=== PATIENT | male | born 1970 | race Caucasian/White ===

== ENCOUNTER 2017-05-27 14:46 | Emergency (ER) | payer SELFPAY ==
[~2017-05-27] VITALS: Ht 177.8 cm; Wt 98.0 kg
--- NOTE | 2017-05-27 15:39 | NUR ---
Pt states he had a tendon displaced, hx recent surgery for reattachment. Pt c/o 04/06 pain left upper arm. PMS intact. Pt denies CP, SOB, dizziness, n/v, no other complaints, minor distress noted.
--- NOTE | 2017-05-27 15:52 | NUR ---
placed pt's left arm in sling. PMS intact.
--- NOTE | 2017-05-27 16:38 | NUR ---
Gave pt RX and d/c instructions, verbalized understanding.
== END 2017-05-27 16:10 | disposition home or self-care (01) ==
LOC: ER 14:55
DX: S46.219A Strain of muscle, fascia and tendon of other parts of biceps, unspecified arm, initial encounter (principal); Z88.6 Allergy status to analgesic agent; X58.XXXA Exposure to other specified factors, initial encounter; Y93.89 Activity, other specified; Y92.9 Unspecified place or not applicable; Y99.9 Unspecified external cause status
CPT/HCPCS: A4663